=== PATIENT | male | born 1935 | race Caucasian/White ===

== ENCOUNTER 2017-10-16 15:10 | Inpatient (IN) | payer OTHER ==
[~2017-10-16] VITALS: Ht 165.1 cm; Wt 70.5 kg
[~2017-10-16 15:10] MED LIST: ACTOS; ACTOS30 MG PO; ALLOPURINOL; ALLOPURINOL100 MG PO; ALLOPURINOL300 MG PO; ASPIRIN81 M1 PO; ASPIRIN81 M2 PO; ATORVASTATIN CA10 MG PO; AUGMENTIN875 MG PO; CALCIUM ACETAT667 M2 PO; CENTRUM SILVER1 EAC3 PO; CO Q-10100 MG PO; COREG6.25 M1 PO; ENALAPRIL; IMDUR30 MG PO; KEFLEX500 MG PO; LASIX40 MG PO; LASIX80 MG PO; NEURONTIN300 MG PO; PREDNISONE20 MG PO; SIMVASTATIN; SYNTHROID25 MCG PO; TAMSULOSIN; VITAMIN D
[2017-10-16 15:36] LABS: HEMATOCRIT 40.2 % (38.0-50.0); HEMOGLOBIN 13.3 G/DL (12.5-16.6); MCH 32.8 PG (29.0-34.0); MCHC 33.1 G/DL (30.0-36.0); PLATELET COUNT 155 K/uL (156-360); RBC DIS.WIDTH-CV 14.5 % (11.8-14.6); RBC DIS.WIDTH-SD 52.5 % (39-53); RED BLOOD COUNT 4.06 M/uL (4.00-5.50); WHITE BLOOD COUNT 9.2 K/uL (4.1-10.2)
[2017-10-16 15:49] LABS: ALBUMIN 4.1 g/dL (3.2-4.8)
[2017-10-16 15:50] LABS: CHLORIDE 99 mEq/L (99-109); POTASSIUM 4.7 mEq/L (3.7-5.4); SODIUM 145 mEq/L (136-147)
[2017-10-16 15:52] LABS: GLUCOSE 105 mg/dL (70-99); TOTAL PROTEIN 7.5 g/dL (6.4-8.3)
[2017-10-16 15:54] LABS: TOTAL BILIRUBIN 1.3 mg/dL (0.0-1.0)
[2017-10-16 15:55] LABS: ALKALINE PHOSPHATASE 126 IU/L (3-129)
[2017-10-16 15:56] LABS: CREATININE 3.5 mg/dL (0.6-1.3); GFR ESTIMATE (CALCULATED) 18 mL/min/ (58.99-99999)
[2017-10-16 15:57] LABS: AST (GOT) 26 IU/L (2-34); TROP-I INTERPRETATION NEGATIVE; TROPONIN-I 0.03 ng/mL (0.0-0.30); UREA NITROGEN (BUN) 45 mg/dL (9-23)
[2017-10-16 15:59] LABS: ALT (GPT) 25 IU/L (3-49); LIPASE 76 U/L (1.0-51.0)
[2017-10-16 19:09] LABS: PTT 33.9 SEC (25-37)
[2017-10-16] MEDS ORDERED: NEPHRO-VITE,1 TABLET PO (19:36)
[2017-10-17] VITALS (23 sets, daily range): BP systolic 126–160; BP diastolic 59–82
[2017-10-17 05:16] LABS: HEMATOCRIT 36.7 % (38.0-50.0); HEMOGLOBIN 11.6 G/DL (12.5-16.6); MCH 31.6 PG (29.0-34.0); MCHC 31.6 G/DL (30.0-36.0); PLATELET COUNT 138 K/uL (156-360); RBC DIS.WIDTH-CV 14.5 % (11.8-14.6); RBC DIS.WIDTH-SD 53.6 % (39-53); RED BLOOD COUNT 3.67 M/uL (4.00-5.50); WHITE BLOOD COUNT 13.8 K/uL (4.1-10.2)
[2017-10-17 05:35] LABS: CHLORIDE 105 MEQ/L (99-109); CREATININE 3.6 MG/DL (0.6-1.3); GFR ESTIMATE (CALCULATED) 17 mL/min/ (58.99-99999); GLUCOSE 154 mg/dL (70-99); MAGNESIUM 1.7 mg/dl (1.3-2.7); PHOSPHORUS 6.3 mg/dL (2.5-4.9); POTASSIUM 4.7 MEQ/L (3.7-5.4); SODIUM 142 MEQ/L (136-147); UREA NITROGEN (BUN) 49 mg/dL (9-23)
[2017-10-18] VITALS (18 sets, daily range): BP systolic 101–157; BP diastolic 62–831
[2017-10-18 05:45] LABS: ALBUMIN 3.6 G/DL (3.2-4.8); CHLORIDE 102 MEQ/L (99-109); GFR ESTIMATE (CALCULATED) 13 mL/min/ (58.99-99999); PHOSPHORUS 6.2 mg/dL (2.5-4.9); POTASSIUM 5.6 MEQ/L (3.7-5.4); SODIUM 139 MEQ/L (136-147); UREA NITROGEN (BUN) 66 mg/dL (9-23)
[2017-10-18 05:47] LABS: CREATININE 4.8 MG/DL (0.6-1.3); GLUCOSE 91 mg/dL (70-99)
[2017-10-19] VITALS (12 sets, daily range): BP systolic 120–152; BP diastolic 56–73
[2017-10-19 05:46] LABS: ALBUMIN 3.6 G/DL (3.2-4.8); CHLORIDE 100 MEQ/L (99-109); GFR ESTIMATE (CALCULATED) 15 mL/min/ (58.99-99999); GLUCOSE 114 mg/dL (70-99); PHOSPHORUS 4.9 mg/dL (2.5-4.9); POTASSIUM 4.5 MEQ/L (3.7-5.4); SODIUM 138 MEQ/L (136-147); UREA NITROGEN (BUN) 43 mg/dL (9-23)
[2017-10-20 03:43] VITALS: BP 138/63
[2017-10-20 07:15] LABS: CHLORIDE 102 MEQ/L (99-109); GFR ESTIMATE (CALCULATED) 12 mL/min/ (58.99-99999); GLUCOSE 108 mg/dL (70-99); PHOSPHORUS 5.6 mg/dL (2.5-4.9); POTASSIUM 3.9 MEQ/L (3.7-5.4); SODIUM 138 MEQ/L (136-147); UREA NITROGEN (BUN) 59 mg/dL (9-23)
[2017-10-20 07:18] LABS: CREATININE 5.1 MG/DL (0.6-1.3)
[2017-10-20 07:35] VITALS: BP 135/63
[2017-10-20 11:00] VITALS: BP 149/65
[2017-10-20 15:10] VITALS: BP 140/64
[2017-10-20 19:28] VITALS: BP 124/58
[2017-10-20 23:06] VITALS: BP 133/63
[2017-10-21 03:29] VITALS: BP 126/60
[2017-10-21 07:30] VITALS: BP 125/61
[2017-10-21 15:10] VITALS: BP 141/67
[2017-10-21 23:12] VITALS: BP 127/59
[2017-10-22 08:01] VITALS: BP 135/63
[2017-10-22 16:13] VITALS: BP 119/52
[2017-10-22 23:07] VITALS: BP 116/58
[2017-10-23 06:02] LABS: HEMATOCRIT 32.5 % (38.0-50.0); HEMOGLOBIN 10.4 G/DL (12.5-16.6); MCH 31.3 PG (29.0-34.0); MCV 97.9 FL (86-99); PLATELET COUNT 134 K/uL (156-360); RBC DIS.WIDTH-CV 13.9 % (11.8-14.6); RBC DIS.WIDTH-SD 49.8 % (39-53); RED BLOOD COUNT 3.32 M/uL (4.00-5.50); WHITE BLOOD COUNT 7.7 K/uL (4.1-10.2)
[2017-10-23 07:02] VITALS: BP 125/61
[2017-10-23 09:04] LABS: CHLORIDE 106 MEQ/L (99-109); CREATININE 5.3 MG/DL (0.6-1.3); GFR ESTIMATE (CALCULATED) 11 mL/min/ (58.99-99999); GLUCOSE 97 mg/dL (70-99); MAGNESIUM 1.8 mg/dl (1.3-2.7); PHOSPHORUS 4.4 mg/dL (2.5-4.9); POTASSIUM 4.2 MEQ/L (3.7-5.4); SODIUM 141 MEQ/L (136-147); UREA NITROGEN (BUN) 48 mg/dL (9-23)
[2017-10-23 11:25] VITALS: BP 138/59
[2017-10-23 11:41] LABS: HEPATITIS B SURFACE ANTIGEN Nonreactive
[2017-10-23 15:27] VITALS: BP 123/58
[2017-10-23] MEDS ORDERED: NORCO 5/3251 TABLET PO (19:36)
== END 2017-10-23 20:45 | disposition home or self-care (01) | DRG 335 ==
LOC: EME 15:10 → SDC 21:28 → 4WEST 23:11 → 2SOUTH 23:11 → ENRESERV 23:12 → 4WEST 10-17 01:29 → ENRESERV 10-19 → 4WEST 10-19 19:06 → ENRESERV 10-19 19:10 → 5EAST 10-19 21:55
PROVIDERS: Emergency Medicine; Internal Medicine; Internal Medicine Nephrology; Surgery; Thoracic Surgery (Cardiothoracic Vascular Surgery)
DX: K56.50 Intestinal adhesions [bands], unspecified as to partial versus complete obstruction (principal); E11.22 Type 2 diabetes mellitus with diabetic chronic kidney disease; E83.39 Other disorders of phosphorus metabolism; E87.2 Acidosis; E87.5 Hyperkalemia; J98.11 Atelectasis; I12.0 Hypertensive chronic kidney disease with stage 5 chronic kidney disease or end stage renal disease; N18.6 End stage renal disease; Z99.2 Dependence on renal dialysis; R91.1 Solitary pulmonary nodule; E11.42 Type 2 diabetes mellitus with diabetic polyneuropathy; I25.10 Atherosclerotic heart disease of native coronary artery without angina pectoris; E03.9 Hypothyroidism, unspecified; E78.5 Hyperlipidemia, unspecified; M10.9 Gout, unspecified; D64.9 Anemia, unspecified; R07.9 Chest pain, unspecified; M54.9 Dorsalgia, unspecified; Z85.820 Personal history of malignant melanoma of skin; Z87.891 Personal history of nicotine dependence; Z90.5 Acquired absence of kidney; I25.2 Old myocardial infarction
CPT/HCPCS: 71045; 71250; 74018; 74176; 74177; 80048; 80053; 80069; 82948; 83690; 83735; 84100; 84484; 85027; 85610; 85730; 86850; 86900; 86901; 87340; 87641; 93005; 94799; 97530 GO; 99281; 99285; J0131; J0330; J1170; J1335; J1644; J2250; J3010; J7030; J7042; J7050; S0028

== ENCOUNTER → 2017-12-05 | Outpatient (CLI) | payer OTHER ==
[~2017-12-05] MED LIST changes: +CALCIUM 500 MG1 EACH PO; +NEPHRO-VITE,1 TABLET PO; +NORCO 5/3251 TABLET PO
== END | disposition home or self-care (01) ==
LOC: OPR 11-26 08:00 → EDSTATUS 08:00
PROVIDERS: Internal Medicine Pulmonary Disease
PROC: 0BBD3ZX Excision of Right Middle Lung Lobe, Percutaneous Approach, Diagnostic (ICD-10-PCS; principal; 2017-12-05)
DX: C34.2 Malignant neoplasm of middle lobe, bronchus or lung (principal); J95.811 Postprocedural pneumothorax; J43.9 Emphysema, unspecified; Z87.891 Personal history of nicotine dependence; E11.9 Type 2 diabetes mellitus without complications; E78.5 Hyperlipidemia, unspecified; J84.10 Pulmonary fibrosis, unspecified; Z79.82 Long term (current) use of aspirin; Z82.49 Family history of ischemic heart disease and other diseases of the circulatory system; Z83.3 Family history of diabetes mellitus; Z90.49 Acquired absence of other specified parts of digestive tract
CPT/HCPCS: 71045; 77012; 82948; 88305; 88341 TC; 88342 TC; J3010

== ENCOUNTER 2018-01-10 08:31 | Day surgery (SDC) | payer OTHER ==
[~2018-01-10] VITALS: Ht 165.1 cm; Wt 69.9 kg
[2018-01-10 09:05] LABS: HEMATOCRIT 35.2 % (38.0-50.0); HEMOGLOBIN 11.5 G/DL (12.5-16.6); MCV 102.3 FL (86-99)
[2018-01-10 09:09] LABS: INTER. NORMALIZED RATIO 0.9
[2018-01-10 09:12] LABS: PTT 25.4 SEC (25-37)
[2018-01-10 09:19] LABS: CHLORIDE 102 mEq/L (99-109); POTASSIUM 5.5 mEq/L (3.7-5.4); SODIUM 140 mEq/L (136-147)
[2018-01-10 09:20] LABS: GLUCOSE 111 mg/dL (70-99)
[2018-01-10 09:24] LABS: GFR ESTIMATE (CALCULATED) 10 mL/min/ (58.99-99999)
[2018-01-10 09:25] LABS: UREA NITROGEN (BUN) 82 mg/dL (9-23)
[2018-01-10 09:34] VITALS: BP 109/53
[2018-01-10] MEDS ORDERED: HYDROCODON-ACE1 EAC7 PO (12:06)
[2018-01-10 14:25] VITALS: BP 138/65
[2018-01-10 15:13] VITALS: BP 147/67
== END 2018-01-10 15:25 | disposition home or self-care (01) ==
LOC: SDC 08:31
PROVIDERS: Thoracic Surgery (Cardiothoracic Vascular Surgery)
PROC: 07B74ZX Excision of Thorax Lymphatic, Percutaneous Endoscopic Approach, Diagnostic (ICD-10-PCS; principal; 2018-01-10)
DX: C34.2 Malignant neoplasm of middle lobe, bronchus or lung (principal); E03.9 Hypothyroidism, unspecified; I12.0 Hypertensive chronic kidney disease with stage 5 chronic kidney disease or end stage renal disease; E11.22 Type 2 diabetes mellitus with diabetic chronic kidney disease; N18.6 End stage renal disease; Z99.2 Dependence on renal dialysis; Z87.891 Personal history of nicotine dependence; I25.2 Old myocardial infarction; I44.0 Atrioventricular block, first degree; Z79.82 Long term (current) use of aspirin; Z90.5 Acquired absence of kidney
CPT/HCPCS: 71045; 80048; 82948; 85014; 85018; 85610; 85730; 86850; 86900; 86901; 87641; 88305; 94640; J0330; J0690; J2710; J3010; J7643